=== PATIENT | male | born 1955 | race Two or more races ===

== ENCOUNTER 2017-11-25 10:20 | Emergency (ER) | payer MEDICAID ==
[~2017-11-25] VITALS: Ht 172.7 cm; Wt 55.0 kg
[2017-11-25 10:24] VITALS: BP 106/65
[2017-11-25] MEDS ORDERED: IBUP-1986 PO (11:11)
== END 2017-11-25 11:23 | disposition home or self-care (01) ==
LOC: ER 10:22
DX: M17.11 Unilateral primary osteoarthritis, right knee (principal); K40.90 Unilateral inguinal hernia, without obstruction or gangrene, not specified as recurrent; G89.29 Other chronic pain; Z87.891 Personal history of nicotine dependence
CPT/HCPCS: 99282

== ENCOUNTER 2018-02-15 17:09 | Emergency (ER) | payer MEDICAID ==
[~2018-02-15 17:09] MED LIST: IBUP-1986 PO
== END 2018-02-15 18:25 | disposition home or self-care (01) ==
LOC: ER 17:09
DX: S00.81XA Abrasion of other part of head, initial encounter (principal); Z04.1 Encounter for examination and observation following transport accident; M19.90 Unspecified osteoarthritis, unspecified site; G89.29 Other chronic pain; Z79.899 Other long term (current) drug therapy; V89.2XXA Person injured in unspecified motor-vehicle accident, traffic, initial encounter; Y93.89 Activity, other specified; Y92.488 Other paved roadways as the place of occurrence of the external cause; Y99.8 Other external cause status
CPT/HCPCS: 99283

== ENCOUNTER 2018-04-15 06:18 | Day surgery (SDC) | payer MEDICAID ==
[2018-04-13 16:37] LABS: CLARITY,URINE SLIGHTLY CLOUDY (Clear); COLOR,URINE YELLOW (Yellow); GLUCOSE, URINE NEGATIVE (Neg); KETONES,URINE 15 mg/dl (Neg); LEUKOCYTE ESTERASE ,URINE NEGATIVE (Neg); NITRITES, URINE NEGATIVE (Neg); OCCULT BLOOD,URINE NEGATIVE (Neg); PH,URINE 6.5 (4.8-8.0); PROTEIN,URINE TRACE mg/dl (Neg); UA COLLECTION TYPE CLN CATCH MIDSTREAM
[2018-04-13 16:41] LABS: BASOPHILS # (AUTO) 0.1 X10'3 (0-0.2); BASOPHILS % (AUTO) 1.3 % (0-1); EOSINOPHILS # (AUTO) 0.1 X10'3 (0-0.9); EOSINOPHILS % (AUTO) 1.4 % (0-6); LYMPHOCYTES # (AUTO) 1.3 X10'3 (1.1-4.8); LYMPHOCYTES % (AUTO) 15.2 % (21-51); MEAN CORPUSCULAR VOLUME 84.9 FL (78-98); MEAN PLATELET VOLUME 7.8 FL (7.4-10.4); MONOCYTES # (AUTO) 0.8 X10'3 (0-0.9); MONOCYTES % (AUTO) 8.9 % (2-12); NEUTROPHILS # (AUTO) 6.3 X10'3 (1.8-7.7); NEUTROPHILS % (AUTO) 73.2 % (42-75); PRE OP HEMATOCRIT 41.3 % (42.0-52.0); PRE OP HEMOGLOBIN 13.6 g/dL (14.0-17.9); PRE OP PLATELET COUNT 374 X10'3 (140-440); RED BLOOD COUNT 4.87 X10'6 (4.70-6.10); RED CELL DISTRIBUTION WIDTH 15.7 % (11.5-14.5)
[2018-04-13 16:48] LABS: ALBUMIN 3.7 G/DL (3.4-5.0); ALBUMIN/GLOBULIN RATIO 0.8 (1.1-1.5); ALKALINE PHOSPHATASE 79 IU/L (46-116); BLOOD UREA NITROGEN 15 MG/DL (7-18); CALCIUM 9.4 MG/DL (8.5-10.1); CHLORIDE 101 MMOL/L (99-107); CREATININE 0.79 MG/DL (0.60-1.10); PRE OP ALT 52 U/L (30-65); PRE OP ANION GAP 8 (8-16); PRE OP AST 77 U/L (10-37); PRE OP BILIRUB, TOTAL 0.6 MG/DL (0.0-1.0); PRE OP GLUCOSE 96 MG/DL (70-104); PRE OP SODIUM 137 MMOL/L (135-145); TOTAL CARBON DIOXIDE 27.7 MMOL/L (24-32); TOTAL PROTEIN 8.1 G/DL (6.4-8.2); eGFR > 90 ML/MIN
[2018-04-13 17:32] LABS: MUCUS STRANDS MANY /LPF (Neg); SQUAMOUS EPITHELIAL CELL,UR MANY /LPF (FEW)
[2018-04-13 17:34] LABS: BACTERIA,URINE NONE SEEN /HPF (Neg); RBC,URINE 0-2 /HPF (0-2); WBC,URINE 0-4 /HPF (0-4)
[~2018-04-15] VITALS: Ht 170.2 cm; Wt 66.0 kg
[2018-04-15] VITALS (9 sets, daily range): BP systolic 97–151; BP diastolic 66–99
[~2018-04-15 06:18] MED LIST changes: +ASPI-1264 PO; -IBUP-1986 PO; +MEDICAL MARIJUANA; +cefazolin/dext.iso 2gm/50ml 50 ML IV ONE; +famotidine 20mg tablet PO ONE; +ringers solution, lacted 1,000 ML IV SCH
[2018-04-15] MEDS ORDERED: ceFAZolin 1000mg inj ONE (08:44)
[2018-04-15] MEDS ORDERED: BUPIVAcaine/PF 2.5mg/ml (0.25%) 10ml vial ONE (08:44)
[2018-04-15] MEDS ORDERED: fentaNYL /PF 50mcg/ml 5ml ampule ONE (08:58)
[2018-04-15] MEDS ORDERED: midazolam 2 mg/2 ml injection ONE (08:58)
[2018-04-15] MEDS ORDERED: sevoflurane 250ml liquid IH ONE (09:01)
[2018-04-15] MEDS ORDERED: ringers solution, lacted 1,000 ML IV SCH (09:43)
[2018-04-15] MEDS ORDERED: ondansetron/PF 4mg/2ml inj IV PRN (09:45)
[2018-04-15] MEDS ORDERED: morphine 4 MG/ML inj SYRINge IV PRN ×2 (09:45)
[2018-04-15] MEDS ORDERED: meperidine/PF 25mg/ml syringe IV PRN ×3 (09:45)
[2018-04-15] MEDS ORDERED: proCHLORperazine 10 MG/2 ml inj IV PRN (09:45)
--- NOTE | 2018-04-15 09:50 | NUR ---
Received from OR via BED , accompanied by Anesthesiologist DR FLANAGAN and report given by Anesthesiolgist. PATIENT WAKING UP, DENIES PAIN, V/S WNL, NEUROVASCULAR CHECKS INTACT, 20G PIV RUE, SCD ON, DERMA BONDED LAP SIGHTS OF ABDOMEN CDI.
[2018-04-15] MEDS ORDERED: dexamethasone sod phosphate 4mg/ml inj. ONE (10:14)
[2018-04-15] MEDS ORDERED: glycopyrrolate 0.2mg/ml inj ONE (10:14)
[2018-04-15] MEDS ORDERED: LIDOcaine 2% (20mg/ml) 5ml vial ONE (10:14)
[2018-04-15] MEDS ORDERED: neostigmine methylsulfate 1 MG/ML 10ml vial ONE (10:14)
[2018-04-15] MEDS ORDERED: rocuronium 10mg/ml inj IV ONE (10:14)
[2018-04-15] MEDS ORDERED: propofol inj 20 ML IV ONE (10:14)
[2018-04-15] MEDS ORDERED: ondansetron/PF 4mg/2ml inj ONE (10:14)
--- NOTE | 2018-04-15 11:00 | NUR ---
PATIENT A&OX4, DENIES PAIN, F/C DRAINING CLEAR YELLOW URINE, V/S WNL, NEUROVASCULAR CHECKS INTACT, 20G PIV LUE D/C, SCD OFF, DERMABONDED LAP SIGHTS OF ABDOMEN CDI.. I HAVE REVIEWED D/C INSTRUCTIONS WITH PATIENT ALONG WITH [facility] CARE FOR HOME AND TO VISIT [facility] OFFICE FOR D/C IN AM. PATIENT AND FAMILY AWARE OF F/C CARE AND HOW TO DRAIN IT. AND ALSO THE IMPORTANCE OF WASHING HANDS AND KEEPING AREA CLEAN TO PRTEVENT INFECTIONS. PATIENT AND FAMILY HAVE VERBALIZED UNDERSTANDING. PATIENT D/C HOME WITH F/C AND WITH FAMILY TO TRANSPORT ALONG WITH ALL BELONGINGS..
== END 2018-04-15 11:00 | disposition home or self-care (01) ==
LOC: PAS 06:18
PROVIDERS: ATTEND Surgery
DX: K40.90 Unilateral inguinal hernia, without obstruction or gangrene, not specified as recurrent (principal); Z72.89 Other problems related to lifestyle; Z79.82 Long term (current) use of aspirin; Z79.899 Other long term (current) drug therapy
CPT/HCPCS: 36415; 49650; 80053; 81001; 82948; 85025; 93005; A6258; C1781; J0690; J1100; J2001; J2175; J2250; J2405; J2704; J2710; J3010; J3490; J7120; A4315